=== PATIENT | male | born 1965 | race Caucasian/White ===

== ENCOUNTER 2021-02-13 10:18 | Inpatient (IN) | payer MEDICAID, SELFPAY ==
[~2021-02-13] VITALS: Ht 167.6 cm; Wt 75.7 kg
[~2021-02-13 10:18] MED LIST: FERR-21 PO; FURO-570 PO; METO50TE2 PO; POTA8TER12 PO; VITA-16 PO
[2021-02-13 10:26] VITALS: BP 119/77
--- NOTE | 2021-02-13 10:36 | NUR ---
PT W/C ASSISTED TO BED 6
--- NOTE | 2021-02-13 10:39 | NUR ---
55 Y/O MALE BIB SON C/O ABDOMINAL PAIN & LIGHT YELLOW FLUID LEAKING FROM ABDOMINAL SURGICAL SITE FROM PARACENTESIS X2 DAYS. PT WAS ADMITTED TO [facility] 02/04 AND D/C 02/11. PER SON, ABOUT 1L LEAKING AN HOUR FROM INCISIONS AND IS WORSE WHEN STANDING. PT HAD OSTOMY 4 DAYS AGO AND C/O BLOODY DIARRHEA FROM RECTUM X 2 DAYS. OSTOMY IS PINK AND MOIST WITH FECES IN OSTOMY BAG, NO BLOOD OBSERVED. PT IS ON SOFT DIET. PT DENIES N/V/FEVER/SOB. PT RATES PAIN 6/10 IN MID ABDOMEN AND DENIES TAKING ANYTHING FOR PAIN. ABD ASCITES AND TENDER ON PALPATION. 3 INCISION SITES FROM PARACENTESIS WITH BANDAGES. CHEMO PORT UPPER R CHEST. PT IS A/O X4 WITH EVEN AND UNLABORED RESPIRATIONS. PT LAYING IN BED WITH BED IN LOWEST POSITION, BRAKES LOCKED, X2 SIDERAILS UP FOR SAFETY. SON AT BEDSIDE PMH: CIRRHOSIS, HTN, CHF, ANEMIA, CIRRHOSIS, COLON CANCER NKA
--- NOTE | 2021-02-13 10:48 | NUR ---
DR ZHU AT BEDSIDE EXAMINING PATIENT
[2021-02-13] MEDS ORDERED: NACL 0.9% 1,000 ML IV ONE (11:10)
[2021-02-13] MEDS ORDERED: cefTRIAXone 1,000 MG VIAL ONE (11:12)
--- NOTE | 2021-02-13 11:16 | NUR ---
PT TAKEN TO CT VIA BRIGITTE
--- NOTE | 2021-02-13 11:18 | NUR ---
JAVIER SWAB SENT TO LAB
--- NOTE | 2021-02-13 11:31 | NUR ---
PT BACK FROM CT AND CONNECTED TO FLUIDS AND MONITOR
--- NOTE | 2021-02-13 11:35 | NUR ---
LAB AT BEDSIDE
[2021-02-13 11:45] LABS: HEMATOCRIT 28.4 % (36-52); HEMOGLOBIN 9.1 g/dL (12.0-18.0); MEAN CORPUSCULAR HEMOGLOBIN 27 pg (27-31); MEAN CORPUSCULAR HGB CONC 32 g/dL (33-37); MEAN CORPUSCULAR VOLUME 83.7 fL (80-94); PLATELET COUNT (AUTO) 440 K/uL (140-450); RED BLOOD CELL COUNT(AUTO) 3.39 MIL/uL (4.20-6.10); WHITE BLOOD COUNT (AUTO) 20.3 K/uL (4.8-10.8)
[2021-02-13 11:57] LABS: PROTHROMBIN TIME 11.8 secs (10.8-13.4)
[2021-02-13 12:02] LABS: ALBUMIN 1.1 g/dL (3.4-5.0); ANION GAP 9.2 (8-16); CARBON DIOXIDE 28.2 mmol/L (21-32); CREATININE 1.1 mg/dL (0.6-1.3); POTASSIUM 5.4 mmol/L (3.5-5.1)
[2021-02-13 12:04] LABS: LYMPHOCYTES % (MANUAL) 2 % (20-46); MONOCYTES % (MANUAL) 8 % (5-12)
--- NOTE | 2021-02-13 12:56 | NUR ---
PATIENT AMBULATED TO RESTROOM FOR COLLECTION OF URINE
--- NOTE | 2021-02-13 13:21 | NUR ---
Note monicamoraima in EDM - 02/13/21 at 1321 by ANA MARIA Patient discharged with v/s stable. Written and verbal after care instructions about corneal abrasion given and explained. Patient alert, oriented and verbalized understanding of instructions. Ambulatory with steady gait. All questions addressed prior to discharge. ID band removed. Patient advised to follow up with PMD. Rx of ciprofloxacin given. Patient educated on indication of medication including possible reaction and side effects. Opportunity to ask questions provided and answered.
[2021-02-13 13:26] LABS: BILIRUBIN,URINE 2+ (NEGATIVE); BLOOD, URINE NEGATIVE (NEGATIVE); COLOR,URINE ORANGE (YELLOW); LEUKOCYTE ESTERASE ,URINE NEGATIVE (NEGATIVE); NITRITE, URINE NEGATIVE (NEGATIVE); UGLUCOSE NEGATIVE (NEGATIVE)
[2021-02-13 13:35] LABS: HYALINE CASTS, URINE 0-10 /LPF (None Seen); RBC,URINE 0-5 /HPF (0-5); WBC,URINE 0-5 /HPF (0-5)
[2021-02-13 13:38] LABS: YEAST,URINE Rare /HPF (None Seen)
[2021-02-13 13:39] LABS: APPEARANCE,URINE SLIGHTLY HAZY (CLEAR)
--- NOTE | 2021-02-13 13:44 | NUR ---
RAD AT BEDSIDE
[2021-02-13] MEDS ORDERED: ONDANSETRON 4 MG/2 ML VIAL IVP PRN (14:55)
[2021-02-13] MEDS ORDERED: DOCUSATE SODIUM 100 MG GELCAP PO PRN (14:55)
--- NOTE | 2021-02-13 15:19 | NUR ---
GAVE REPORT TO LYDIA SHARIF FOR ADMIT TO TELEMETRY 107B. ETA 15 MINS
--- NOTE | 2021-02-13 15:24 | NUR ---
REPORT RECEIVED FROM ED NURSE. AWAITING PT.
[2021-02-13] MEDS: ACETAMINOPHEN 325 MG TAB PO PRN (15:32)
--- NOTE | 2021-02-13 15:34 | NUR ---
Patient will be admitted to care of Dr. Franky Ozuna. Admited to Telemetry. Will go to room 107B. Belongings list completed. Report to Andria SHARIF.
--- NOTE | 2021-02-13 15:45 | NUR ---
PT RECEIVED FROM ED NURSE IN [facility]. PT AMBULATED TO BED. TOLERATED WELL. PT COMPLAINED OF PAIN 7/10 ON UPPER ABDOMEN.MEDICATION GIVEN PER MD ORDER. PT EDUCATED. PT VERBALIZED UNDERSTANDING. NO S/S OF DISTRESS AT THIS TIME. CALL LIGHT IS WITHIN REACH. ALL SAFETY MEASURES ARE IN PLACE. WILL CONTINUE TO MONITOR.
--- NOTE | 2021-02-13 15:50 | NUR ---
PT ORIENTED TO ROOM, HOSPITAL. RULES AND PROTOCOLS EXPLAINED. PT VERBALIZED UNDERSTANDING. MRSA SWAB OBTAINED
--- NOTE | 2021-02-13 17:49 | NUR ---
SURGICAL SITE PICTURES OBTAINED. PT HAS 3 SURGICAL WOUNDS FROM PARACENTHESIS. DRAINAGE NEVER STOPPED. DRAINAGE IS SERIOUS. ABDOMEN IS ROUND. NO GUARDING OR PAIN ASSOCIATED WITH WOUNDS. PT IS CONCERNED REGARDING LARGE CONTINUOUS DRAINAGE IN 2 SITES.
--- NOTE | 2021-02-13 18:42 | NUR ---
PT SITTING IN BED HAVING DINNER. PT TOLERATING WELL. NO S/S OF DISTRESS AT THIS TIME. CALL LIGHT IS WITHIN REACH. ALL SAFETY MEASURES ARE IN PLACE. WILL ENDORSE TO RN LABOR AND DELIVERY RN FOR CONTINUITY OF CARE.
--- NOTE | 2021-02-13 19:15 | NUR ---
RECEIVING PATIENT FROM AM NURSE FOR CONTINUITY OF CARE. PATIENT ON TELE MONITOR. PATIENT IS A/A/O X4. RESPIRATORY EVEN AND UNLABORED, ON ROOM AIR. SKIN WARM, DRY, NON-DIAPHORETIC. INCISION FROM PREVIOUS PARACENTESIS AND COLOSTOMY BAG NOTED. IV ON RIGHT AC 20G, SL. PATIENT DENIES ANY PAIN OR DISCOMFORT. PLAN OF CARE DISCUSSED, PATIENT VERBALIZED UNDERSTANDING. CALL LIGHT WITHIN REACH. WILL CONTINUE TO MONITOR.
[2021-02-13 20:00] VITALS: BP 103/67
--- NOTE | 2021-02-13 21:15 | NUR ---
PATIENT COMPLAINS FLUID LEAKING FROM PARACENTESIS SITE WHEN STANDING. ASSIST PATIENT BACK TO BED, CHART NURSE NOTIFIED. REMOVED DRESSING, APPLY OSTOMY BAG TO COLLECT FLUID. PATIENT IS NO SIGN OF DISTRESS. WILL CONTINUE TO MONITOR.
[2021-02-14] VITALS: BP 117/78
--- NOTE | 2021-02-14 | NUR ---
ROUND CHECK. PATIENT IS SLEEPING. AROUSABLE BY VOICE. NO S/S OF DISTRESS AT THIS TIME. CALL LIGHT IS WITHIN REACH. ALL SAFETY MEASURES ARE IN PLACE. WILL CONTINUE TO MONITOR.
--- NOTE | 2021-02-14 01:58 | NUR ---
ROUND CHECK. PATIENT AMBULATES TO BATHROOM WITH STEADY GAIT INDEPENDENTLY. NO SIGN OF DISTRESS NOTED. WILL CONTINUE TO MONITOR.
[2021-02-14 04:00] VITALS: BP 131/85
--- NOTE | 2021-02-14 04:15 | NUR ---
PATIENT IS AWAKE, SITTING ON THE SIDE OF BED. NO SIGN OF DISTRESS NOTED. CALL LIGHT WITHIN REACH. PRECAUTION IN PLACE. WILL CONTINUE TO MONITOR.
--- NOTE | 2021-02-14 06:00 | NUR ---
ROUND CHECK. PATIENT IS RESTING IN BED. NO SIGN OF DISTRESS NOTED. CALL LIGHT WITHIN REACH. WILL CONTINUE TO MONITOR.
--- NOTE | 2021-02-14 07:05 | NUR ---
ENDORSED PATIENT TO AM NURSE FOR CONTINUITY OF CARE. PATIENT IS STABLE.
--- NOTE | 2021-02-14 07:15 | NUR ---
PT RECEIVED FROM SET UP MECHANIC HEADING MACHINES RN. PT HAS EYES CLOSED EASY TO AROUSE. IV ON RIGHT ARM IS CLEAR DRY PATENT AND INTACT. NO S/S OF DISTRESS. CALL LIGHT IS WITHIN REACH. ALL SAFETY MEASURES ARE IN PLACE WILL CONTINUE TO MONITOR.
[2021-02-14 08:00] VITALS: BP 126/84
--- NOTE | 2021-02-14 08:13 | NUR ---
PT ASSISTED WITH MEAL TRAY SET UP. TOWEL PROVIDED. ASSESSED SURGICAL SITES. NO REDNESS, TENDERNESS, OR WELLING. WARM TO TOUCH . SITES ARE STILL DRAINING A LOT. 200 MLS AT THIS TIME. NO S/S OF DISTRESS. CALL LIGHT IS WITHIN REACH. ALL SAFETY MEASURES ARE IN PLACE WILL CONTINUE TO MONITOR.
[2021-02-14 09:14] LABS: BASOPHILS # (AUTO) 0.1 K/uL (0.00-0.22); BASOPHILS % (AUTO) 0.4 % (0.0-2.0); EOSINOPHILS % (AUTO) 0.1 % (0.0-4.0); HEMATOCRIT 29.2 % (36-52); HEMOGLOBIN 9.4 g/dL (12.0-18.0); LYMPHOCYTES % (AUTO) 5.5 % (20.5-51.1); MEAN CORPUSCULAR HEMOGLOBIN 27 pg (27-31); MEAN CORPUSCULAR HGB CONC 32 g/dL (33-37); MEAN CORPUSCULAR VOLUME 84.6 fL (80-94); MONOCYTES # (AUTO) 1.3 K/uL (0.8-1.0); MONOCYTES % (AUTO) 7.5 % (1.7-9.3); NEUTROPHILS # (AUTO) 15.1 K/uL (1.8-7.7); NEUTROPHILS % (AUTO) 86.5 % (42.2-75.2); PLATELET COUNT (AUTO) 476 K/uL (140-450); RED BLOOD CELL COUNT(AUTO) 3.46 MIL/uL (4.20-6.10); RED CELL DISTRIBUTION WIDTH 20.9 % (11.6-13.7); WHITE BLOOD COUNT (AUTO) 17.5 K/uL (4.8-10.8)
[2021-02-14 09:22] LABS: ANION GAP 8.8 (8-16); CREATININE 1.1 mg/dL (0.6-1.3); POTASSIUM 4.8 mmol/L (3.5-5.1)
--- NOTE | 2021-02-14 10:15 | NUR ---
PATIENT HAS BEEN SCREENED AND CATEGORIZED MODERATE NUTRITION RISK. PATIENT WILL BE SEEN WITHIN 3-5 DAYS OF ADMISSION. 02/16/21 02/18/[address]
--- NOTE | 2021-02-14 11:20 | NUR ---
SOCIAL WORK NOTE: SW WAS UNABLE TO MEET PATIENT AT BEDSIDE. SW ATTEMPTED TO CONTACT PATIENT'S SON, FREDA YUNG [phone] TO COMPLETE ASSESSMENT. SW LEFT VM AND WILL FOLLOW UP.
--- NOTE | 2021-02-14 11:24 | NUR ---
SOCIAL WORK NOTE: Patient's Orientation Unable To Assess Information Provided By KATHARINE WOODRUFF - SON Comments SW WAS UNABLE TO MEET PATIENT AT BEDSIDE. SW COMPLETED ASSESSMENT WITH PATIENT'S SON. SON REQUESTED THAT PATIENT'S SISTER BE ADDED TO CONTACT INFORMATION. Seals Engraver, Realtionship and Phone Number KATHARINE WOODRUFF SON [phone] MIGUEL MCNAMARA SISTER [phone] [facility] Power of Pig Caster No Does Patient Have a POLST No Identifying Problems No Social Work Triggers Is A Social Work Consult Needed No Mandate Report Filed No Explanation Of Identifying Problems PATIENT IS A 51-YEAR-OLD FEMALE ADMITTED FOR SEPSIS AND WOUND INFECTION. PATIENT HAS PMHX OF CHF AND COPD. SON REPORTED NO HX OF MENTAL HEALTH OR SUBSTANCE ABUSE. Admitted From Home Pre-Admission Level Of Functioning Status Independent With DME Level Of Functioning Comment SON REPORTED THAT PATIENT IS INDEPENDENT WITH ALL ADLS AT BASELINE. Prior Resources/Services Used In Last 12 Months No Prior Resources Used Prior DME Walker Dialysis Comments N/A Living Situation Apartment Lives Alone Patient Had Caregiver No Home Support No Caregiver Issues Financial Issues No Known Financial Issue Referral To The Financial Counselor Needed No Factors/Needs No D/C Needs Identified Pt/Rep Participated In Discharge Plan Yes Patient/Family Agress With Discharge Plan Yes Discharge Plan Comments TENTATIVE DISCHARGE PLAN IS FOR PATIENT TO RETURN HOME. DC Plan Status Initiated Addendum: 02/14/21 at 1125 by Jerel Miner DISREGARD SOCIAL WORK NOTE. NOTE WAS MADE IN ERROR.
--- NOTE | 2021-02-14 11:30 | NUR ---
MEDICATIONS GIVEN PER MD ORDER. PT EDUCATED. PT VERBALIZED UNDERSTANDING. PT TOLERATED WELL. NO ADVERSE REACTIONS. MD (TIFFANY) AT BEDSIDE EDUCATING PT ON CARE. PT VERBALIZED UNDERSTANDING. NO S/S OF DISTRESS AT THIS TIME.CALL LIGHT IS WITHIN REACH. ALL SAFETY MEASURES ARE IN PLACE WILL CONTINUE TO MONITOR.
--- NOTE | 2021-02-14 11:45 | NUR ---
WOUND CARE AT BEDSIDE. EDUCATED PT ON CARE OF OSTOMY AND DRAINAGE BAG OF SURGICAL INCISION. PT VERBALIZED UNDERSTANDING.NO ADVERSE REACTIONS. NO S/S OF DISTRESS AT THIS TIME.CALL LIGHT IS WITHIN REACH. ALL SAFETY MEASURES ARE IN PLACE WILL CONTINUE TO MONITOR.
--- NOTE | 2021-02-14 11:50 | NUR ---
WOUND CARE EVALUATION NOTE: ABDOMINAL SURGICAL SITE ASSESSED ON THIS 55-YEAR-OLD MALE WITH A HISTORY OF CIRRHOSIS, SIGMOID CANCER OSTOMY PLACEMENT FEBRUARY 07, S/P LAPAROSCOPIC DIVERTING COLOSTOMY TO LLQ ABDOMINAL. STOMA ROUND, MOIST, BEEFY RED AND FUNCTIONING WITH SOFT STOOL OUTPUT.RLQ ABD POST SURGICAL SMALL OPEN WOUND WITH LEAKAGE OF PERITONEAL FLUIDS, OTHER SURGICAL SITES WOUND HEALING WELL WITH DRY DRESSING DCI. PT IS AAX4. WOUND DRAINAGE POUCH AND COLOSTOMY CARE INSTRUCTIONS EXPLAINED TO PRIMARY RN AND PT. PT. VERBALIZES UNDERSTANDING. PER PRIMARY RN PHYSICIAN ORDERED PARACENTESIS AND PENDING EVALUATION ASCITES FLUID. NO OPEN ACTIVE WOUND, WILL CONTINUE TO MONITOR RLQ ABD SURGICAL SITE AND OUTPUT.
[2021-02-14 12:00] VITALS: BP 124/80
--- NOTE | 2021-02-14 12:09 | NUR ---
02/14/2021 RD INITIAL ASSESSMENT COMPLETED PLEASE REFER TO NUTRITION ASSESSMENT UNDER CARE ACTIVITY FOR ESTIMATED NUTRITIONAL NEEDS. CURRENT DIET ORDERED IS INADEQUATE FOR WOUND HEALING/ADEQUATE KCALS/PRO, WILL ADD ENSURE CLEAR TO CURRENT DIET ORDER, RD TO FOLLOW-UP IN 2-3 DAYS TO CHECK INTAKE, DIET ADVANCEMENT AND ADDITIONAL ORAL SUPPLEMENT NEEDS RD TO FOLLOW-UP IN 2-3 DAYS PATIENT IS HIGH RISK. DEYANIRA MARTINEZ, RD
--- NOTE | 2021-02-14 12:17 | NUR ---
DC PLANNIN YRS OLD MALE PATIENT WAS ADMITTED FROM HOME WITH A DX OF VAGUE ABD PAIN AND LEUKOCYTOSIS. PT WAS DC FROM THE HOSPITAL ON 02/11/21 PT HAS SURGERY FOR SIGMOID MASS WITH COLOSTOMY. SIGMOID METASTATIC CANCER HTN, ASCITES AND CIRRHOSIS, CT ABD/PELVIS SHOWED DIVERTING COLOSTOMY. CONSULTED WITH GI DR KUMAR AND ID. STARTED ON IVF IV ABX ZOSYN AND CONTINUED HOME MEDS. DC PLAN TO ESTABLISH MEDICAL SO HE CAN BEGIN TO RECEIVE CHEMOTHERAPY. REFER TO [facility] TO APPLY FOR MEDICAL CM TO FOLLOW Addendum: 02/15/21 at 1333 by Awilda Layton CM DC BUS MATRON: PER [facility] REP PATIENT SIGNED Plex APPLICATION AND IT WILL BE MAILED OUT TODAY. Addendum: 02/17/21 at 1415 by Awilda Layton CM DC BUS MATRON: PATIENT HAS A FOLLOW UP APPOINTMENT DR. GOMEZ 02/21/2021 1:40 PM [address] [facility] [address] [place] [address]
--- NOTE | 2021-02-14 13:00 | NUR ---
MEDICATIONS GIVEN PER MD ORDER. PT EDUCATED. PT VERBALIZED UNDERSTANDING. PT TOLERATED WELL. NO ADVERSE REACTIONS. NO S/S OF DISTRESS AT THIS TIME.CALL LIGHT IS WITHIN REACH. ALL SAFETY MEASURES ARE IN PLACE WILL CONTINUE TO MONITOR.
--- NOTE | 2021-02-14 14:49 | NUR ---
PT COMPLAINS OF ABDOMINAL PAIN. 07/22. MEDICATIONS GIVEN PER MD ORDER. PT EDUCATED. PT VERBALIZED UNDERSTANDING. PT TOLERATED WELL. NO ADVERSE REACTIONS. NO S/S OF DISTRESS AT THIS TIME.CALL LIGHT IS WITHIN REACH. ALL SAFETY MEASURES ARE IN PLACE WILL CONTINUE TO MONITOR.
--- NOTE | 2021-02-14 15:10 | NUR ---
PT ASSISTED WITH EMPTYING COLOSTOMY BAG AND WOUND DRAINAGE WAS SENT TO LAB. NO S/S OF DISTRESS AT THIS TIME.CALL LIGHT IS WITHIN REACH. ALL SAFETY MEASURES ARE IN PLACE WILL CONTINUE TO MONITOR.
[2021-02-14 16:00] VITALS: BP 99/85
[2021-02-14] MEDS: HYDROcodone/APAP 7.5/325 MG 1 TAB PO PRN (16:51)
[2021-02-14 17:06] LABS: APPEARANCE,SPUN,BODY FLUID CLEAR (CLEAR); APPEARANCE,UNSPUN,BODY FLUID HAZY (CLEAR); COLOR,BODY FLUID YELLOW (LT YELLOW); SPECIMENTYPE,BODY FLUID ASCITES; TOTAL VOLUME,BODY FLUID 100 mL
[2021-02-14 17:17] LABS: RBC, BODY FLUID 150 /cu. mm.
[2021-02-14 17:22] LABS: GLUCOSE,BODY FLUID 209 mg/dL; WBC, BODY FLUID 150 /cu. mm.
[2021-02-14 17:23] LABS: ALBUMIN,BODY FLUID 0.1 g/dL; LDH,BODY FLUID 106 U/L; LIPASE,BODY FLUID 131 U/L
--- NOTE | 2021-02-14 18:07 | NUR ---
PT IN BED EATING DENIES PAIN AT THIS TIME. WILL CONTINUE TO MONITOR.
[2021-02-14 18:37] LABS: POLYNUCLEAR, BODY FLUID 20 %
--- NOTE | 2021-02-14 19:10 | NUR ---
RECEIVED BEDSIDE REPORT FROM DAY SHIFT NURSE. PATIENT IS AWAKE, ALERT, AND COOPERATIVE. RESPIRATION EVEN UNLABORED ON ROOM AIR. NO DISTRESS NOTED. SKIN IS WARM AND DRY. IV PATENT AND INTACT. RIGHT CHEST ALONZO CATH NOTED. OSTOMY BAG NOTED DRAINING SOFT YELLOWISH STOOL. PATIENT S/P PARACENTESIS FROM PREVIOUS ADMISSION. MULTIPLE PARACENTESIS INCISION NOTED. RIGHT AND LEFT INCISION CONNECTED TO A DRAINAGE BAG. PLAN OF CARE WAS DISCUSSED. ALL SAFETY MEASURES IN PLACE. BED IS AT LOW POSITION. CALL LIGHT WITHIN REACH AND VERBALIZES ITS USE. WILL CONTINUE TO MONITOR.
--- NOTE | 2021-02-14 19:16 | NUR ---
PATIENT STABLE. NO ACUTE EVENT THROUGHOUT THE DAY. NO COMPLAIN AT THIS TIME. PT IS NOT ON ANY DISTRESS. ALL NEEDS ATTENDED. CALL LIGHT WITHIN REACH. WILL ENDORSE THE PT TO THE ONCOMING RN FOR CONTINUITY OF CARE
[2021-02-14 20:00] VITALS: BP 111/76
[2021-02-14] MEDS: metroNIDAZOLE 500 MG/NS PREMIX 100 ML IV SCH (20:49)
--- NOTE | 2021-02-14 20:49 | NUR ---
FLAGYL IV ANTIBIOTIC GIVEN PER MD ORDER. WILL CONTINUE TO MONITOR.
--- NOTE | 2021-02-14 23:01 | NUR ---
MADE ROUNDS. PATIENT SLEEPING RESPIRATION EVEN UNLABORED ON ROOM AIR. NO DISTRESS NOTED. WILL CONTINUE TO MONITOR.
[2021-02-15] VITALS: BP 103/68
--- NOTE | 2021-02-15 01:35 | NUR ---
PATIENT INCISION SITE LEAKING. FIX AND REPOSITION COLLECTING BAG. WILL CONTINUE TO MONITOR
--- NOTE | 2021-02-15 03:21 | NUR ---
MADE ROUNDS. PATIENT SLEEPING RESPIRATION EVEN UNLABORED ON ROOM AIR. NO DISTRESS NOTED. WILL CONTINUE TO MONITOR.
[2021-02-15 04:00] VITALS: BP 120/83
[2021-02-15] MEDS: metroNIDAZOLE 500 MG/NS PREMIX 100 ML IV SCH ×3 (04:52→21:12)
--- NOTE | 2021-02-15 05:00 | NUR ---
FLAGYL IV ANTIBIOTIC GIVEN PER MD ORDER. WILL CONTINUE TO MONITOR.
[2021-02-15 06:18] LABS: ANION GAP 9.3 (8-16); CARBON DIOXIDE 26.4 mmol/L (21-32); CREATININE 0.9 mg/dL (0.6-1.3); POTASSIUM 3.7 mmol/L (3.5-5.1)
[2021-02-15 06:23] LABS: BASOPHILS # (AUTO) 0.1 K/uL (0.00-0.22); BASOPHILS % (AUTO) 0.6 % (0.0-2.0); EOSINOPHILS % (AUTO) 0.2 % (0.0-4.0); HEMATOCRIT 30.3 % (36-52); HEMOGLOBIN 9.9 g/dL (12.0-18.0); LYMPHOCYTES # (AUTO) 1.2 K/uL (2.0-11.5); LYMPHOCYTES % (AUTO) 7.1 % (20.5-51.1); MEAN CORPUSCULAR HEMOGLOBIN 27 pg (27-31); MEAN CORPUSCULAR HGB CONC 33 g/dL (33-37); MEAN CORPUSCULAR VOLUME 84.2 fL (80-94); MONOCYTES # (AUTO) 1.3 K/uL (0.8-1.0); MONOCYTES % (AUTO) 7.8 % (1.7-9.3); NEUTROPHILS % (AUTO) 84.3 % (42.2-75.2); PLATELET COUNT (AUTO) 480 K/uL (140-450); RED CELL DISTRIBUTION WIDTH 21.7 % (11.6-13.7); WHITE BLOOD COUNT (AUTO) 16.6 K/uL (4.8-10.8)
--- NOTE | 2021-02-15 07:04 | NUR ---
RECEIVED PT FROM MACHINE PACKAGER NURSE, ROGELIO, PT IS AWAKE AND LYING ON THE BED WITH SIDE RAILS UP AND CALL LIGHT WITHIN REACH, IV LINE NOTED ON THE RT AC G. 20 ON SALINE LOCK, PT IS ON ROOM AIR, RESPIRATION IS EVEN, VISIBLE CHEST RISE AND FALL, OSTOMY BAG INTACT ON LEFT ABDOMINAL SIDE, 5 INCISIONS NOTED S/P PARACENTESIS, DRAINAGES ARE 350ML ON LEFT SIDE AND 600ML ON RT SIDE, NO SIGN OF DISTRESS NOTED AND WILL CONTINUE TO BE MONITORED.
--- NOTE | 2021-02-15 07:12 | NUR ---
ENDORSED PATIENT TO DAY SHIFT NURSE FOR CONTINUITY OF CARE
--- NOTE | 2021-02-15 07:14 | NUR ---
RECEIVED PT FROM LOADING UNIT TOOL SETTER NURSE, ROGELIO, PT IS AWAKE AND LYING ON THE BED WITH SIDE RAILS UP AND CALL LIGHT WITHIN REACH, IV LINE NOTED ON THE RT AC G. 20 ON SALINE LOCK, PT IS ON ROOM AIR, RESPIRATION IS EVEN, VISIBLE CHEST RISE AND FALL, OSTOMY BAG INTACT ON LEFT ABDOMINAL SIDE, 5 INCISIONS NOTED S/P PARACENTESIS, DRAINAGES ARE 350ML ON LEFT SIDE AND 600ML ON RT SIDE, NO SIGN OF DISTRESS NOTED AND WILL CONTINUE TO BE MONITORED.
[2021-02-15 08:00] VITALS: BP 139/98
[2021-02-15] MEDS: POTASSIUM CHLORIDE 8 MEQ TABER PO SCH (08:19)
[2021-02-15] MEDS: FERROUS SULFATE 325 MG TABEC PO SCH (08:19)
[2021-02-15] MEDS: VITAMIN D 400 IU TAB PO SCH (08:19)
[2021-02-15] MEDS: METOPROLOL SUCCINATE 50 MG TABER PO SCH (08:20)
--- NOTE | 2021-02-15 08:20 | NUR ---
PT WAS GIVEN THE SCHEDULED AM MEDICATIONS, PARAMETER CHECKED, TOLERATED, AND WILL CONTINUE TO MONITOR PT.
[2021-02-15] MEDS ORDERED: SPIRONOLACTONE 50 MG TAB PO SCH (09:00)
[2021-02-15] MEDS ORDERED: NON-FORMULARY ITEM (Cholecalciferol (Vitamin D3) (Vitamin D3) 1 CAP) PO SCH (09:00)
[2021-02-15] MEDS ORDERED: FUROSEMIDE 40 MG TAB PO SCH (09:00)
--- NOTE | 2021-02-15 10:07 | NUR ---
PT WAS GIVEN IVPB ROCEPHIN NOW.
--- NOTE | 2021-02-15 11:10 | NUR ---
ASCITES FLUID SAMPLE WAS SENT TO LAB NOW FOR GRAM STAIN.
[2021-02-15 12:00] VITALS: BP 114/78
--- NOTE | 2021-02-15 12:27 | NUR ---
PT WAS GIVEN IVPB FLAGYL NOW, WILL CONTINUE TO MONITOR PT.
--- NOTE | 2021-02-15 14:30 | NUR ---
PT WAS ASSISTED TO BATHROOM AND BACK TO BED.
[2021-02-15 16:00] VITALS: BP 127/82
--- NOTE | 2021-02-15 17:15 | NUR ---
PT IS SLEEPING RIGHT NOW. NO SIGN OF DISTRESS NOTED, WILL MONITOR PT.
--- NOTE | 2021-02-15 19:25 | NUR ---
ENDORSED PT TO DAMAGED FREIGHT INSPECTOR NURSEROBIN FOR CONTINUITY OF CARE.
--- NOTE | 2021-02-15 19:25 | NUR ---
RECEIVED PT AAOX4 , NID - O2 SAT WNL , IV SITE INTACT AND PATENT W/ OSTOMY BAG CONNECTING TO FC BAG ON THE LEFT ABD INTACT AND PATENT . W/ INCISSIONAL SITE ON THE THE RIGHT ABD - NO LEAKS - CLOSED W/ DERMABOND C/O KUNLA N - WILL MEDICATE SAFETY MEASURES IN PLACE - CALL LIGHT WITHIN REACH . PLAN OF CARE DISCUSSED AND VERBALIZE UNDERSTANDING .
[2021-02-15 20:00] VITALS: BP 90/60
--- NOTE | 2021-02-15 22:00 | NUR ---
MADE ROUNDS , NO S/X OF ACUTE DISTRESS NOTED . WILL CONT. TO MONITOR .
[2021-02-15] MEDS: ACETAMINOPHEN 325 MG TAB PO PRN (22:02)
--- NOTE | 2021-02-15 23:50 | NUR ---
ENDORSED TO NURSE MASTERS FOR CONTINUITY OF CARE .- PT - STABLE .
--- NOTE | 2021-02-15 23:51 | NUR ---
RECEIVED REPORT FROM NIGHT NURSE ROBIN FOR CONTINUITY OF CARE. PATIENT IS IN STABLE CONDITION. EMPTIED 200ML OF SOFT YELLOWISH STOOL FROM OSTOMY BAG. DENIES DISCOMFORT, DENIES PAIN. NO DISTRESS NOTED. BED IN LOW POSITION. CALL LIGHT WITHIN REACH. WILL CONTINUE TO MONITOR
[2021-02-16] VITALS: BP 94/65
--- NOTE | 2021-02-16 03:18 | NUR ---
PATIENT ASLEEP IN BED. RESPIRATIONS EVEN UNLABORED, NO DISTRESS NOTED. BED IN LOW POSITION. CALL LIGHT WITHIN REACH. WILL CONTINUE TO MONITOR
[2021-02-16 04:00] VITALS: BP 90/60
[2021-02-16] MEDS: metroNIDAZOLE 500 MG/NS PREMIX 100 ML IV SCH ×3 (05:12→20:31)
--- NOTE | 2021-02-16 05:20 | NUR ---
SCHEDULED MEDICATION GIVEN. NO DISTRESS NOTED. DENIES DISCOMFORT, DENIES PAIN. CALL LIGHT WITHIN REACH. WILL CONTINUE TO MONITOR
--- NOTE | 2021-02-16 07:30 | NUR ---
ENDORSED PATIENT TO DAY RN FOR CONTINUITY OF CARE. PATIENT IS IN STABLE CONDITION
--- NOTE | 2021-02-16 07:31 | NUR ---
RECEIVED ENDORSEMENT AT THIS TIME. PT IS STABLE ALL NEEDS MET. POC DISCUSSED AND WILL CONTINUE
[2021-02-16 08:00] VITALS: BP 114/70
[2021-02-16] MEDS: VITAMIN D 400 IU TAB PO SCH (08:52)
[2021-02-16] MEDS: FERROUS SULFATE 325 MG TABEC PO SCH (08:52)
[2021-02-16] MEDS: METOPROLOL SUCCINATE 50 MG TABER PO SCH (08:53)
[2021-02-16] MEDS: POTASSIUM CHLORIDE 8 MEQ TABER PO SCH (08:53)
--- NOTE | 2021-02-16 09:00 | NUR ---
SCHEDULED MEDICATION GIVEN TOLERATED WELL. DENIES ANY DISTRESS AT THIS TIME. CALL LIGHT WITHIN REACH. LUNG SOUNDS ARE CLEAR NO COUGH NO SOB ON RA. ABD IS SOFT AND DISTENDED WITH ACTIVE BS X 4. INCISION ON ABD ARE CLEAN AND DRY, HEALING. PT HAS OSTOMY TO LEFT LOWER QUAD. THAT IS DRAINING. YELLOWISH SOFT STOOL. SAFETY MEASURES IN PLACE.
[2021-02-16 09:16] LABS: BASOPHILS # (AUTO) 0.1 K/uL (0.00-0.22); BASOPHILS % (AUTO) 0.7 % (0.0-2.0); EOSINOPHILS % (AUTO) 0.2 % (0.0-4.0); HEMATOCRIT 30.5 % (36-52); HEMOGLOBIN 9.9 g/dL (12.0-18.0); LYMPHOCYTES # (AUTO) 1.1 K/uL (2.0-11.5); LYMPHOCYTES % (AUTO) 6.8 % (20.5-51.1); MEAN CORPUSCULAR HEMOGLOBIN 28 pg (27-31); MEAN CORPUSCULAR HGB CONC 33 g/dL (33-37); MEAN CORPUSCULAR VOLUME 84.9 fL (80-94); MONOCYTES # (AUTO) 1.1 K/uL (0.8-1.0); MONOCYTES % (AUTO) 7.2 % (1.7-9.3); NEUTROPHILS # (AUTO) 13.2 K/uL (1.8-7.7); NEUTROPHILS % (AUTO) 85.1 % (42.2-75.2); PLATELET COUNT (AUTO) 482 K/uL (140-450); RED BLOOD CELL COUNT(AUTO) 3.59 MIL/uL (4.20-6.10); RED CELL DISTRIBUTION WIDTH 21.3 % (11.6-13.7); WHITE BLOOD COUNT (AUTO) 15.5 K/uL (4.8-10.8)
[2021-02-16 09:33] LABS: ANION GAP 8.9 (8-16); CREATININE 0.9 mg/dL (0.6-1.3); POTASSIUM 4.9 mmol/L (3.5-5.1)
--- NOTE | 2021-02-16 10:45 | NUR ---
OSTOMY BAG WAS EMPTIED WITH 150ML OF STOOL. PT DENIES ANY DISTRESS. PROVISION OF CARE PROVIDED. ALL NEEDS MET.
[2021-02-16 12:00] VITALS: BP 134/82
--- NOTE | 2021-02-16 12:30 | NUR ---
RESTING IN BED ALL NEEDS MET AT THIS TIME. DENIES ANY DISTRESS.
--- NOTE | 2021-02-16 14:45 | NUR ---
RESTING IN BED, DENIES ANY DISTRESS. SCHEDULED ANTIBIOTICS GIVEN TOLERATED WELL.
[2021-02-16 16:00] VITALS: BP 107/69
--- NOTE | 2021-02-16 16:40 | NUR ---
PROVISION OF CARE PROVIDED. ALL NEEDS MET
--- NOTE | 2021-02-16 18:25 | NUR ---
COLOSTOMY DRAINED. ALL NEEDS MET.
--- NOTE | 2021-02-16 19:20 | NUR ---
PT ENDORSED TO CARPET JOURNEYMAN RN FOR CONTINUITY OF CARE. PT IS STABLE DENIES ANY DISTRESS, SAFETY MEASURES IN PLACE.
--- NOTE | 2021-02-16 19:21 | NUR ---
RECEIVED PT FROM AM RN. ALERT, AWAKE, VERBALLY RESPONSIVE, ABLE TO VERBALIZE HIS NEEDS. NO SIGNS OF DISTRESS/SHORTNESS OF BRFEATH. RESPIRATIPON EVEN UNLABORED. DENIES OF PAIN AT THIS TIME. WILL CONTINUE TO MONITOR.
[2021-02-16 20:00] VITALS: BP 112/81
--- NOTE | 2021-02-16 20:31 | NUR ---
SCHEDULED MEDICATION ADMINISTERED PER ORDER. PT AWAKE. DENIES PAIN.
[2021-02-17] VITALS: BP 103/69
[2021-02-17] MEDS: HYDROcodone/APAP 7.5/325 MG 1 TAB PO PRN (00:29)
--- NOTE | 2021-02-17 02:00 | NUR ---
MADE ROUNDS , PT SLEEPING , NO DISTRESS
[2021-02-17 04:00] VITALS: BP 111/69
[2021-02-17] MEDS: metroNIDAZOLE 500 MG/NS PREMIX 100 ML IV SCH ×3 (04:32→20:59)
--- NOTE | 2021-02-17 04:32 | NUR ---
MEDICATION ADMINISTERED SCHEDULED PER ORDER, NO ADVERSE REACTION NOTED. DENIES OF PAIN.
[2021-02-17 06:53] LABS: BASOPHILS # (AUTO) 0.1 K/uL (0.00-0.22); BASOPHILS % (AUTO) 0.6 % (0.0-2.0); EOSINOPHILS % (AUTO) 0.1 % (0.0-4.0); HEMATOCRIT 29.6 % (36-52); HEMOGLOBIN 9.5 g/dL (12.0-18.0); LYMPHOCYTES # (AUTO) 1.9 K/uL (2.0-11.5); LYMPHOCYTES % (AUTO) 9.8 % (20.5-51.1); MEAN CORPUSCULAR HEMOGLOBIN 27 pg (27-31); MEAN CORPUSCULAR HGB CONC 32 g/dL (33-37); MEAN CORPUSCULAR VOLUME 85.3 fL (80-94); MONOCYTES # (AUTO) 1.8 K/uL (0.8-1.0); MONOCYTES % (AUTO) 9.3 % (1.7-9.3); NEUTROPHILS # (AUTO) 15.4 K/uL (1.8-7.7); NEUTROPHILS % (AUTO) 80.2 % (42.2-75.2); PLATELET COUNT (AUTO) 470 K/uL (140-450); RED BLOOD CELL COUNT(AUTO) 3.47 MIL/uL (4.20-6.10); RED CELL DISTRIBUTION WIDTH 22.1 % (11.6-13.7); WHITE BLOOD COUNT (AUTO) 19.2 K/uL (4.8-10.8)
--- NOTE | 2021-02-17 07:07 | NUR ---
ENDORSED TO AM RN FOR CONTINUITY OF CARE.
--- NOTE | 2021-02-17 07:10 | NUR ---
RECEIVED PATIENT FROM NIGHT NURSE. PATIENT IN BED AWAKE AND ALERT. RESP EVEN AND UNLABORED ON ROOM AIR. DENIED OF PAIN AT THIS TIME. LFA 22G, SL. RIGHT UPPER CHEST PORTACATH REPORTED. PLAN OF CARE DISCUSSED. PATIENT VERBALIZED UNDERSTANDING. HOB ELEVATED. CALL LIGHT WITHIN REACH. WILL CONTINUE TO MONITOR.
[2021-02-17 07:34] LABS: ANION GAP 10.8 (8-16); CARBON DIOXIDE 25.6 mmol/L (21-32); POTASSIUM 5.4 mmol/L (3.5-5.1)
[2021-02-17 08:00] VITALS: BP 109/61
[2021-02-17] MEDS: VITAMIN D 400 IU TAB PO SCH (08:30)
[2021-02-17] MEDS: FERROUS SULFATE 325 MG TABEC PO SCH (08:30)
[2021-02-17] MEDS: METOPROLOL SUCCINATE 50 MG TABER PO SCH (08:30)
[2021-02-17] MEDS: POTASSIUM CHLORIDE 8 MEQ TABER PO SCH (08:33)
--- NOTE | 2021-02-17 08:42 | NUR ---
PATIENT IN BED AWAKE AND ALERT TALKING TO FAMILY. DR LIAO AT BEDSIDE. GAVE ORDER TO D/C SLOW K ROUTINE, CURRENT POTASSIUM 5.4, ORDER CARRIED OUT. MORNING ROUTINE MEDICATIONS GIVEN. PATIENT TOLERATED WELL. LFA 22 G INTACT AND PATENT. MEDIPORT NOTED TO RIGHT UPPER CHEST. PER PATIENT, CHEMO WILL START NEXT WEEK. COLOSTOMY BAG NOTED WITH BROWN SOFT STOOL. PATIENT ABLE TO MAKE NEEDS KNOWN. NO NOTED ACUTE DISTRESS. CALL LIGHT WITHIN REACH. WILL CONTINUE TO MONITOR.
--- NOTE | 2021-02-17 12:52 | NUR ---
PATIENT IN BED AWAKE AND ALERT. FINISHED WITH LUNCH. PATIENT STATED HE'S ABLE TO TOLERATE FOOD BETTER AND NOT FEELING NAUSEOUS. PATIENT REQUESTED TO TALK TO WELL TESTER ABOUT HIS DIET REGIMEN AT HOME D/T COLOSTOMY. FNS MADE AWARE. PATIENT DENIED OF PAIN AT THIS TIME. CALL LIGHT WITHIN REACH. WILL CONTINUE TO MONITOR.
--- NOTE | 2021-02-17 14:28 | NUR ---
PATIENT IN BED AWAKE AND ALERT. RESP EVEN AND UNLABORED ON ROOM AIR. DENIED OF PAIN AT THIS TIME. CALL LIGHT WITHIN REACH. WILL CONTINUE TO MONITOR.
[2021-02-17 16:00] VITALS: BP 87/51
--- NOTE | 2021-02-17 16:38 | NUR ---
PATIENT IN BED SLEEPING, CHEST NOTED RISING. NO ACUTE S/S DISTRESS. CALL LIGHT WITHIN REACH. WILL CONTINUE TO MONITOR. Addendum: 02/17/21 at 1927 by Shoaib Parada RN ASCITE FLUIDS RESULT REPORTED TO DR LIAO. NEW ORDER RECEIVED.
[2021-02-17] MEDS ORDERED: LEVOFLOXACIN 750 MG/D5W PREMIX 150 ML IV ONE (17:00)
--- NOTE | 2021-02-17 19:15 | NUR ---
ENDORSED PATIENT TO NIGHT NURSE. PATIENT IN STABLE CONDITION.
--- NOTE | 2021-02-17 19:16 | NUR ---
RECEIVED PT FROM AM RN ON BED LYING, NO DISTRESS, NO SHORTNESS OF BREATH. RESPIRATION REGULAR NON LABORED. DENIES PAIN. WILL CONTINNUE TO MONITOR.
[2021-02-17 20:00] VITALS: BP 101/66
--- NOTE | 2021-02-17 20:59 | NUR ---
SCHEDULED MEDICATIONS ADMINISTERED PER ORDER, NO ADVERSE REACTION NOTED. PT IS ALERT, AWAKE VERBALLY RESPONSIVE, ABLE TO COMMUNICATE WITH HIS NEEDS. DENIES PAIN . WILL CONTINUE TO MONITOR.
[2021-02-18] VITALS: BP 101/66
--- NOTE | 2021-02-18 00:10 | NUR ---
MADE ROUNDS , PT SLEEPING, NO ACUTE DISTRESS NOTED AT THIS TIME.
--- NOTE | 2021-02-18 01:10 | NUR ---
PT IN BED SITTING. MEDICATIONS GIVEN PER MD ORDER. PT EDUCATED. PT VERBALIZED UNDERSTANDING. NO S/S OF DISTRESS AT THIS TIME.CALL LIGHT IS WITHIN REACH. WILL CONTINUE TO MONITOR
--- NOTE | 2021-02-18 03:45 | NUR ---
CHECKED PATIENT, ASLEEP ON BED, RESPIRATION EVEN UNLABORED.
[2021-02-18 04:00] VITALS: BP 112/88
[2021-02-18] MEDS: metroNIDAZOLE 500 MG/NS PREMIX 100 ML IV SCH ×2 (04:38→13:32)
--- NOTE | 2021-02-18 07:31 | NUR ---
ENDORSED PATIENT TO AM RN FOR CONTINUITY OF CARE.
--- NOTE | 2021-02-18 07:35 | NUR ---
PT RECEIVED FROM SOFTWARE APPLICATIONS SPECIALIST RN. PT RESTING IN BED EYES CLOSED. EASY TO AROUSE.NO S/S OF DISTRESS. CALL LIGHT IS WITHIN REACH. WILL CONTINUE TO MONITOR.
[2021-02-18 08:00] VITALS: BP 121/82
[2021-02-18 08:40] LABS: BASOPHILS # (AUTO) 0.1 K/uL (0.00-0.22); BASOPHILS % (AUTO) 0.4 % (0.0-2.0); EOSINOPHILS # (AUTO) 0.1 K/uL (0-0.4); EOSINOPHILS % (AUTO) 0.4 % (0.0-4.0); HEMATOCRIT 30.6 % (36-52); HEMOGLOBIN 10.1 g/dL (12.0-18.0); LYMPHOCYTES # (AUTO) 1.4 K/uL (2.0-11.5); LYMPHOCYTES % (AUTO) 7.7 % (20.5-51.1); MEAN CORPUSCULAR HEMOGLOBIN 28 pg (27-31); MEAN CORPUSCULAR HGB CONC 33 g/dL (33-37); MEAN CORPUSCULAR VOLUME 85.9 fL (80-94); MONOCYTES # (AUTO) 1.5 K/uL (0.8-1.0); MONOCYTES % (AUTO) 8.1 % (1.7-9.3); NEUTROPHILS # (AUTO) 15.4 K/uL (1.8-7.7); NEUTROPHILS % (AUTO) 83.4 % (42.2-75.2); PLATELET COUNT (AUTO) 497 K/uL (140-450); RED BLOOD CELL COUNT(AUTO) 3.56 MIL/uL (4.20-6.10); RED CELL DISTRIBUTION WIDTH 21.5 % (11.6-13.7); WHITE BLOOD COUNT (AUTO) 18.5 K/uL (4.8-10.8)
[2021-02-18 08:49] LABS: ANION GAP 9.3 (8-16); CARBON DIOXIDE 25.2 mmol/L (21-32)
[2021-02-18 08:52] LABS: MAGNESIUM 1.5 mg/dL (1.8-2.4); PHOSPHORUS 2.9 mg/dL (2.5-4.9)
[2021-02-18 08:57] LABS: POTASSIUM 5.5 mmol/L (3.5-5.1)
--- NOTE | 2021-02-18 09:04 | NUR ---
PT RECEIVED FROM HAT MODEL RN. PT RESTING IN BED EYES CLOSED. EASY TO AROUSE.NO S/S OF DISTRESS. CALL LIGHT IS WITHIN REACH. WILL CONTINUE TO MONITOR.
[2021-02-18] MEDS: FERROUS SULFATE 325 MG TABEC PO SCH (09:06)
[2021-02-18] MEDS: VITAMIN D 400 IU TAB PO SCH (09:06)
[2021-02-18] MEDS: METOPROLOL SUCCINATE 50 MG TABER PO SCH (09:06)
--- NOTE | 2021-02-18 09:07 | NUR ---
MEDICATIONS GIVEN PER MD ORDER. PT EDUCATED. PT VERBALIZED UNDERSTANDING. NO S/S OF DISTRESS AT THIS TIME.CALL LIGHT IS WITHIN REACH. WILL CONTINUE TO MONITOR
[2021-02-18] MEDS ORDERED: LEVO750T51 PO (10:20)
[2021-02-18 10:53] VITALS: BP 121/82
--- NOTE | 2021-02-18 11:30 | NUR ---
PT IN BED. NO S/S OF DISTRESS AT THIS TIME.CALL LIGHT IS WITHIN REACH. WILL CONTINUE TO MONITOR
--- NOTE | 2021-02-18 12:20 | NUR ---
MEDICATIONS GIVEN PER MD ORDER. PT EDUCATED. PT VERBALIZED UNDERSTANDING. NO S/S OF DISTRESS AT THIS TIME.CALL LIGHT IS WITHIN REACH. WILL CONTINUE TO MONITOR
--- NOTE | 2021-02-18 13:10 | NUR ---
PT IN BED SITTING.MEDICATIONS GIVEN PER MD ORDER. PT EDUCATED. PT VERBALIZED UNDERSTANDING. NO S/S OF DISTRESS AT THIS TIME.CALL LIGHT IS WITHIN REACH. WILL CONTINUE TO MONITOR
--- NOTE | 2021-02-18 14:09 | NUR ---
SOCIAL WORK NOTE: SW MET WITH PATIENT AT BEDSIDE TO DISCUSS DISCHARGE PLAN. PATIENT STATED THAT HE IS UNWILLING TO RETURN TO HIS HOME ADDRESS BECAUSE HE BELIEVES THAT HIS ROOMMATE HAS COVID. SW PROVIDED [facility] [employer]. PATIENT STATED THAT HE WILL CONTACT [facility] AND MAY REQUIRE BUS PASS TO [facility] OF HIS CHOICE. SW SPOKE WITH CHANTE FREEMAN WHO IS CONNECTING ROOM PHONE FOR PATIENT TO CONTACT [employer]. SW EXPLAINED THAT [facility] [employer] ARE OFTEN FIRST [facility] FIRST SERVE. PATIENT STATED HE WOULD REVIEW RESOURCES AND BEGIN CALLING. SW ASKED IF PATIENT HAD WEATHER APPROPRIATE CLOTHING AND PATIENT SAID YES. SW WILL REMAIN AVAILABLE IF FURTHER ISSUES ARISE.
--- NOTE | 2021-02-18 15:30 | NUR ---
PT DISCHARGE INSTRUCTIONS DONE. PT CALLING [employer]TER[employer] TO ARRANGE WHERE TO SLEEP. 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 NO S/S OF DISTRESS AT THIS TIME.CALL LIGHT IS WITHIN REACH. WILL CONTINUE TO MONITOR
[2021-02-18] MEDS ORDERED: VANCOMYCIN PER PHARMACY MC PRN (16:55)
--- NOTE | 2021-02-18 17:30 | NUR ---
PT RESTING SITTING. NO S/S OF DISTRESS AT THIS TIME.CALL LIGHT IS WITHIN REACH. WILL CONTINUE TO MONITOR
[2021-02-18] MEDS ORDERED: VANCOMYCIN 1,000 MG in DEXTROSE 5% 250 ML IV SCH (18:00)
--- NOTE | 2021-02-18 18:38 | NUR ---
PT LEFT UNIT VIA WHEEL CHAIR. IV CANULA REMOVED INTACT CANULA. PT EDUCATED PT VERBALIZED UNDERSTANDING. ALL PAPERS SIGNED. PT LEFT IN PRIVATE VEHICLE AND IN STABLE CONDITION.
[2021-02-18] MEDS ORDERED: MEROPENEM 1,000 MG in NACL 0.9% 100 ML IV SCH (21:00)
== END 2021-02-18 18:35 | disposition home or self-care (01) | DRG 720 ==
LOC: MED 10:18 → MTU 14:59
PROVIDERS: ADMIT Emergency Medicine; ATTEND Emergency Medicine
PROC: 02HV33Z Insertion of Infusion Device into Superior Vena Cava, Percutaneous Approach (ICD-10-PCS; principal; 2021-02-13)
DX: A41.9 Sepsis, unspecified organism (principal); E43 Unspecified severe protein-calorie malnutrition; E87.2 Acidosis; C18.7 Malignant neoplasm of sigmoid colon; I50.9 Heart failure, unspecified; E83.51 Hypocalcemia; I11.0 Hypertensive heart disease with heart failure; E83.42 Hypomagnesemia; E86.0 Dehydration; B96.29 Other Escherichia coli [E. coli] as the cause of diseases classified elsewhere; E87.1 Hypo-osmolality and hyponatremia; D64.9 Anemia, unspecified; E87.5 Hyperkalemia; F10.10 Alcohol abuse, uncomplicated; Z93.3 Colostomy status; E87.6 Hypokalemia; D72.829 Elevated white blood cell count, unspecified; K70.31 Alcoholic cirrhosis of liver with ascites; R73.9 Hyperglycemia, unspecified; Z68.27 Body mass index [BMI] 27.0-27.9, adult; Z20.822 Contact with and (suspected) exposure to COVID-19
CPT/HCPCS: 36415; 71045; 80048; 80053; 81001; 82150; 82272; 82945; 83605; 83615; 83735; 84100; 84157; 85025; 85610; 87070; 87075; 87081; 87186; 87205; 89051; 93005; 96365; 99285; J0696; J1956; J2185; J3370; J3490; J7030; J7060